=== PATIENT | female | born 1960 | race Caucasian/White ===

== ENCOUNTER → 2016-12-11 | Outpatient (CLI) | payer OTHER ==
[~2016-12-11] MED LIST: /AMLO25TA PO; /CLON1TA OR; /CLON1TA PO; /DULO30CA OR; /LOR25TA PO; /ONDA4TA OR; /ONDA4TA PO; /PANT40TA OR; /PANT40TA PO; /QUET10TA OR; /QUET25TA PO; ALBU17IN2 IN; AMBI10TA OR; AMBI5TAB PO; ASPI81TA45 OR; ASPI81TA63 PO; AUGM875T27 PO; AZIT250T3 PO; BISAC5TA PO; CATA0.1T OR; COMBIN INH; DEPA250T3 OR; DEXILANT PO; DOCU10ELUD PO; FOLI400T PO; HYDR-3713 PO; IMIT50TA PO; KEPP500T4 PO; KLON1TAB OR; LEVO200T OR; LEVO50TA4 PO; LEVO750T33 PO; LEVO88TA4 PO; LIPI10TA PO; LISI10TA4 OR; LISI10TA4 PO; MICR10CA PO; MILKSUS; NICO14DI3 TD; NICO14PA TD; NICO21DI4 TD; OMEP40CA2 PO; OXYC10TA12 PO; PLAV75TA2 OR; SERO200T PO; SERO400T OR; VENTAER IN; VENTAER INH; VICODINES TAB OR; VITA100037 PO; VITAMIN B12 PO; ZEST20TA8 PO; ZYRT10CA PO
[2016-12-11 13:16] LABS: ALBUMIN 3.9 GM/DL (3.2-5.2); ALBUMIN/GLOBULIN RATIO 1.22 (1.00-1.93); ALKALINE PHOSPHATASE 180 U/L (45-117); ALT/SGPT 46 U/L (12-78); ANION GAP 8 MEQ/L (8-16); AST/SGOT 74 U/L (15-37); BILIRUBIN,TOTAL 0.5 MG/DL (0.2-1.0); BLOOD UREA NITROGEN 10 MG/DL (7-18); CALCIUM LEVEL 8.8 MG/DL (8.5-10.1); CARBON DIOXIDE LEVEL 27 MEQ/L (21-32); CHLORIDE LEVEL 106 MEQ/L (98-107); CREATININE FOR GFR 0.87 MG/DL (0.55-1.02); FREE T4 1.02 NG/DL (0.76-1.46); GLOMERULAR FILTRATION RATE > 60.0 (>51); GLUCOSE, FASTING 139 MG/DL (70-105); POTASSIUM SERUM 4.6 MEQ/L (3.5-5.1); SODIUM LEVEL 141 MEQ/L (136-145); TOTAL PROTEIN 7.1 GM/DL (6.4-8.2)
== END ==
LOC: M WUC 08:49
PROVIDERS: ATTEND Nurse Practitioner Family
DX: E03.9 Hypothyroidism, unspecified (principal); R73.09 Other abnormal glucose

== ENCOUNTER → 2017-01-03 | Emergency (ER) | payer OTHER ==
[~2017-01-03] VITALS: Ht 162.6 cm; Wt 78.5 kg
[~2017-01-03] MED LIST changes: +ATEN50TA2 PO; +GABA-283 PO; +IPRATROPIUM 0.5MG/ALBUTEROL 2.5MG INH SOL UD 3ML (DUONEB)(J7620) NEB ONE; +NS 1,000 ML IV ONE; +PRED20TA PO; +TIZA4CAP3 PO; +dexameTHASONE 20 MG/5 ML VIAL (J1100) IV ONE
[2017-01-03 21:23] LABS: ALBUMIN 3.6 GM/DL (3.2-5.2); ALBUMIN/GLOBULIN RATIO 1.06 (1.00-1.93); BILIRUBIN,DIRECT 0.1 MG/DL (0.0-0.2); BILIRUBIN,TOTAL 0.4 MG/DL (0.2-1.0)
[2017-01-03 21:48] VITALS: BP 164/76
--- NOTE | 2017-01-03 22:00 | ECGEPIP ---
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
--- NOTE | 2017-01-04 02:36 | REP ---
Clinical: Dyspnea. Comparison: 12/14/2015. Findings: Mediastinum and cardiac silhouette are normal. Lung [place] are relatively stable and clear. No focal consolidation, effusion, or pneumothorax. Trace left basilar atelectasis cannot be excluded. Skeletal structures intact. Impression: No focal consolidation. Signed by Juan M Dial MD 01/04/2017 02:27 A
== END | disposition home or self-care (01) ==
LOC: M ED 20:28
DX: R11.10 Vomiting, unspecified (principal); J44.9 Chronic obstructive pulmonary disease, unspecified; I10 Essential (primary) hypertension; E78.5 Hyperlipidemia, unspecified; M19.90 Unspecified osteoarthritis, unspecified site; F17.200 Nicotine dependence, unspecified, uncomplicated; Z79.899 Other long term (current) drug therapy; Z79.82 Long term (current) use of aspirin
CPT/HCPCS: 71020; 80076; 82150; 83690; 93005; 93041; 94640; 94760; 96374; 99284; J1100

== ENCOUNTER 2017-01-11 17:39 | Emergency (ER) | payer OTHER ==
[~2017-01-11] VITALS: Ht 162.6 cm; Wt 81.2 kg
[2017-01-11 17:39] VITALS: BP 178/83
[~2017-01-11 17:39] MED LIST changes: -GABA-283 PO; -IPRATROPIUM 0.5MG/ALBUTEROL 2.5MG INH SOL UD 3ML (DUONEB)(J7620) NEB ONE; -NS 1,000 ML IV ONE; -dexameTHASONE 20 MG/5 ML VIAL (J1100) IV ONE
[2017-01-11] MEDS ORDERED: GABA-283 PO (18:28)
== END 2017-01-11 21:31 | disposition left against medical advice (07) ==
LOC: M ED 18:45
DX: I10 Essential (primary) hypertension (principal); Z79.82 Long term (current) use of aspirin; Z79.899 Other long term (current) drug therapy; Z86.73 Personal history of transient ischemic attack (TIA), and cerebral infarction without residual deficits; R56.9 Unspecified convulsions; Z85.820 Personal history of malignant melanoma of skin; F25.9 Schizoaffective disorder, unspecified; G47.30 Sleep apnea, unspecified; Z85.41 Personal history of malignant neoplasm of cervix uteri; M54.9 Dorsalgia, unspecified; F41.9 Anxiety disorder, unspecified; Z53.29 Procedure and treatment not carried out because of patient's decision for other reasons

== ENCOUNTER → 2017-01-26 | Outpatient (REF) | payer OTHER ==
[~2017-01-26] MED LIST changes: +GABA-283 PO
[2017-01-26 13:20] LABS: FREE T4 1.18 NG/DL (0.76-1.46)
== END ==
LOC: M LABDRAW1 11:44
PROVIDERS: ATTEND Nurse Practitioner Family
DX: E03.9 Hypothyroidism, unspecified (principal)

== ENCOUNTER → 2017-01-26 | Outpatient (REF) | payer OTHER ==
[2017-01-26 13:16] LABS: BLOOD UREA NITROGEN 12 MG/DL (7-18); CREATININE FOR GFR 0.95 MG/DL (0.55-1.02); GLOMERULAR FILTRATION RATE > 60.0 (>51)
== END ==
LOC: M LABDRAW1 11:43
PROVIDERS: ATTEND Orthopaedic Surgery
DX: M25.562 Pain in left knee (principal)

== ENCOUNTER → 2017-03-28 | Outpatient (CLI) | payer OTHER ==
[2017-03-28 18:32] LABS: BASO # 0.1 K/mm3 (0.0-0.2); BASO % 1.1 % (0.0-1.0); EOS # 0.2 K/mm3 (0.0-0.50); EOS % 1.9 % (0.0-3.0); LARGE UNSTAINED CELL # 0.1 K/mm3 (0.0-0.4); LYMPH % 23.4 % (24.0-44.0); MEAN CORPUSCULAR HEMOGLOBIN 32.7 pg (27.0-33.0); MEAN CORPUSCULAR HGB CONC 33.3 g/dl (32.0-36.5); MEAN CORPUSCULAR VOLUME 98.2 fl (80.0-96.0); MONO # 0.4 K/mm3 (0.0-0.8); MONO % 4.7 % (0.0-5.0); NEUTROPHILS # 5.6 K/mm3 (1.8-7.7); PLATELET COUNT, AUTOMATED 306 k/mm3 (150-450); RED CELL DISTRIBUTION WIDTH 12.9 % (11.5-14.5); WHITE BLOOD COUNT 8.2 K/mm3 (4.0-10.0)
[2017-03-28 18:46] LABS: ALBUMIN 3.8 GM/DL (3.2-5.2); ALBUMIN/GLOBULIN RATIO 1.27 (1.00-1.93); ALKALINE PHOSPHATASE 164 U/L (45-117); ALT/SGPT 23 U/L (12-78); ANION GAP 8 MEQ/L (8-16); AST/SGOT 47 U/L (15-37); BILIRUBIN,TOTAL 0.3 MG/DL (0.2-1.0); BLOOD UREA NITROGEN 5 MG/DL (7-18); CALCIUM LEVEL 9.6 MG/DL (8.5-10.1); CARBON DIOXIDE LEVEL 27 MEQ/L (21-32); CHLORIDE LEVEL 109 MEQ/L (98-107); CREATININE FOR GFR 0.81 MG/DL (0.55-1.02); GLOMERULAR FILTRATION RATE > 60.0 (>51); GLUCOSE, FASTING 138 MG/DL (70-105); SODIUM LEVEL 144 MEQ/L (136-145); TOTAL PROTEIN 6.8 GM/DL (6.4-8.2)
== END ==
LOC: M WUC 11:09
PROVIDERS: ATTEND Nurse Practitioner Family
DX: R60.9 Edema, unspecified (principal); I10 Essential (primary) hypertension

== ENCOUNTER 2017-04-19 10:34 | Emergency (ER) | payer OTHER ==
[~2017-04-19] VITALS: Ht 162.6 cm; Wt 86.1 kg
[~2017-04-19 10:34] MED LIST changes: -AUGM875T27 PO; +AUGM875T28 PO; +AZIT-12 PO; -AZIT250T3 PO; +LEVO750T13 PO; -LEVO750T33 PO
[2017-04-19] MEDS ORDERED: LEVO88TA3 PO (10:46)
[2017-04-19] MEDS ORDERED: NORC7.5T35 PO (10:46)
[2017-04-19] MEDS ORDERED: **hydrALAZINE HCL** 25 MG TAB PO SCH (12:00)
[2017-04-19 12:57] LABS: BASO # 0.1 K/mm3 (0.0-0.2); BASO % 1.2 % (0.0-1.0); EOS # 0.2 K/mm3 (0.0-0.50); EOS % 2.2 % (0.0-3.0); LARGE UNSTAINED CELL # 0.1 K/mm3 (0.0-0.4); LYMPH # 2.4 K/mm3 (1.5-4.5); LYMPH % 26.6 % (24.0-44.0); MEAN CORPUSCULAR HEMOGLOBIN 32.8 pg (27.0-33.0); MEAN CORPUSCULAR HGB CONC 34.2 g/dl (32.0-36.5); MEAN CORPUSCULAR VOLUME 95.9 fl (80.0-96.0); MONO # 0.4 K/mm3 (0.0-0.8); NEUTROPHILS # 5.8 K/mm3 (1.8-7.7); PLATELET COUNT, AUTOMATED 240 k/mm3 (150-450); RED CELL DISTRIBUTION WIDTH 12.4 % (11.5-14.5)
[2017-04-19] MEDS ORDERED: KETOROLAC 30 MG/ML VIAL (J1885) IV ONE ×2 (13:00→13:45)
[2017-04-19] MEDS ORDERED: MORPHINE 2 MG/ML 1ML SYRINGE IV ONE ×2 (13:00→13:45)
[2017-04-19] MEDS ORDERED: METOCLOPRAMIDE INJ 10MG/2ML VIAL (J2765) IV ONE ×2 (13:00→13:45)
[2017-04-19] MEDS: hydrALAZINE INJ 20 MG/ML VIAL IV PRN ×2 (13:01→14:13)
[2017-04-19 13:03] LABS: INR 1.01
[2017-04-19 13:11] LABS: CONTROL LINE HCG INT CTR LINE PRESENT
[2017-04-19 13:20] LABS: ANION GAP 3 MEQ/L (8-16); AST/SGOT 41 U/L (15-37); BLOOD UREA NITROGEN 7 MG/DL (7-18); CALCIUM LEVEL 8.8 MG/DL (8.5-10.1); CARBON DIOXIDE LEVEL 29 MEQ/L (21-32); CHLORIDE LEVEL 110 MEQ/L (98-107); GLOMERULAR FILTRATION RATE > 60.0 (>51); GLUCOSE, FASTING 117 MG/DL (70-105); SODIUM LEVEL 142 MEQ/L (136-145)
[2017-04-19 13:21] LABS: ALBUMIN 3.5 GM/DL (3.2-5.2); ALBUMIN/GLOBULIN RATIO 1.13 (1.00-1.93); ALKALINE PHOSPHATASE 137 U/L (45-117); ALT/SGPT 19 U/L (12-78); BILIRUBIN,TOTAL 0.7 MG/DL (0.2-1.0); MAGNESIUM LEVEL 2.1 MG/DL (1.8-2.4); T UPTAKE 35 % (30-39); TOTAL PROTEIN 6.6 GM/DL (6.4-8.2)
[2017-04-19] MEDS ORDERED: ISOVUE-370 76% 100ML VIAL (Q9967) As Ordered ONE (13:25)
[2017-04-19 13:29] LABS: ERYTHROCYTE SEDIMENTATION RATE 13 mm/hr (0-30); THYROXINE (T4) 10.8 UG/DL (4.5-12.0)
--- NOTE | 2017-04-19 13:53 | REP ---
Clinical: Headache . Comparison: 03/13/2014 . Findings: The ventricles, sulci, and cisterns are normal in position and appearance. Ramos-white differentiation is maintained. No acute intracranial hemorrhage, mass/mass effect, pathology or trauma/injury. No evidence for acute infarction. No extra-axial fluid collection. Calvarium is intact. Paranasal sinuses and mastoid air cells are clear. Impression: Normal noncontrast head CT. No evidence for acute intracranial pathology or trauma/injury. Signed by Juan M Dial MD 04/19/2017 01:44 P
--- NOTE | 2017-04-19 14:04 | REP ---
Clinical: Headache and abdominal pain. Technique: Axial contrast enhanced images from the lung bases to the pubic symphysis using 100 ml Isovue 370 intravenous contrast material with coronal and sagittal re-formations. Comparison: 09/29/2011. Findings: Lung bases are clear. Visualized heart and pericardium normal. Liver, spleen, pancreas, gallbladder, bilateral adrenal glands and kidneys are normal. Hepatic hypodensity along the posterior periphery right lobe is unchanged compared to 2011 and compatible with cyst. The enteric system is without obstruction or acute inflammatory process. Pelvis demonstrates normal bladder and evidence for prior hysterectomy. Small amount of free fluid in the posterior pelvic cul-de-sac is nonspecific. No adenopathy. No significant ascites. No free air. Abdominal aorta and vasculature normal. Musculoskeletal structures demonstrate age-related changes without focal osseous abnormality. Impression: 1. Hepatic cysts stable compared to 2010. 2. Small amount of free fluid in the pelvis nonspecific. 3. No acute abdominopelvic pathology appreciated. Signed by Juan M Dial MD 04/19/2017 01:56 P
[2017-04-19 14:13] VITALS: BP 202/92
--- NOTE | 2017-04-19 14:18 | REP ---
PORTABLE CHEST X-RAY: Single view. HISTORY: CVA. Comparison study January 03, 2017. FINDINGS: EKG monitoring electrodes overlie the chest. Lungs are well inflated and clear. The aorta is slightly tortuous. Pulmonary vasculature is not increased. No infiltrate is seen. The heart is not felt to be enlarged. IMPRESSION: No acute disease. Signed by Doug Philippe MD 04/19/2017 03:34 P
[2017-04-19] MEDS ORDERED: ATOR80TA59 PO (14:54)
[2017-04-19] MEDS ORDERED: ALBU17IN INH (14:54)
[2017-04-19] MEDS ORDERED: SLEE1TAB PO (14:54)
[2017-04-19] MEDS ORDERED: GABA-282 PO (14:54)
[2017-04-19] MEDS ORDERED: TRIA37.5 PO (14:56)
[2017-04-19] MEDS ORDERED: LISI-538 PO (15:01)
[2017-04-19 15:06] LABS: METHADONE URINE NEGATIVE (NEGATIVE)
[2017-04-19 16:29] VITALS: BP 112/62
--- NOTE | 2017-04-20 07:30 | ECGEPIP ---
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
[2017-04-26 00:11] LABS: URINE METANEPHR/CREAT RATIO 0.4 (0.0-1.0)
== END 2017-04-19 17:24 | disposition left against medical advice (07) ==
LOC: M ED 10:34
DX: R51 Headache (principal); I10 Essential (primary) hypertension

== ENCOUNTER 2017-04-25 19:43 | Observation (INO) | payer OTHER ==
[~2017-04-25] VITALS: Ht 162.6 cm; Wt 85.3 kg
[~2017-04-25 19:43] MED LIST changes: +ALBU17IN INH; +ATOR80TA59 PO; +GABA-282 PO; +LEVO88TA3 PO; +LISI-538 PO; +NORC7.5T35 PO; +SLEE1TAB PO; +TRIA37.5 PO
[2017-04-25] MEDS ORDERED: fentaNYL 100 MCG/2 ML INJECTION (J3010) IV ONE (20:30)
[2017-04-25] MEDS ORDERED: KETOROLAC 30 MG/ML VIAL (J1885) IV ONE (20:30)
[2017-04-25] MEDS ORDERED: hydrALAZINE INJ 20 MG/ML VIAL IV ONE (20:30)
[2017-04-25 20:37] LABS: BASO # 0.1 K/mm3 (0.0-0.2); BASO % 0.8 % (0.0-1.0); EOS # 0.1 K/mm3 (0.0-0.50); EOS % 1.5 % (0.0-3.0); LARGE UNSTAINED CELL # 0.1 K/mm3 (0.0-0.4); LARGE UNSTAINED CELL % 1.2 % (0.0-4.0); LYMPH # 2.8 K/mm3 (1.5-4.5); LYMPH % 30.5 % (24.0-44.0); MEAN CORPUSCULAR HEMOGLOBIN 32.5 pg (27.0-33.0); MEAN CORPUSCULAR VOLUME 95.4 fl (80.0-96.0); MONO # 0.4 K/mm3 (0.0-0.8); NEUTROPHILS # 5.7 K/mm3 (1.8-7.7); NEUTROPHILS % 62.1 % (36.0-66.0); PLATELET COUNT, AUTOMATED 303 k/mm3 (150-450); RED CELL DISTRIBUTION WIDTH 12.6 % (11.5-14.5); WHITE BLOOD COUNT 9.1 K/mm3 (4.0-10.0)
[2017-04-25 21:08] LABS: ANION GAP 9 MEQ/L (8-16); BLOOD UREA NITROGEN 3 MG/DL (7-18); CALCIUM LEVEL 8.8 MG/DL (8.5-10.1); CARBON DIOXIDE LEVEL 26 MEQ/L (21-32); CHLORIDE LEVEL 107 MEQ/L (98-107); CREATININE FOR GFR 0.77 MG/DL (0.55-1.02); GLOMERULAR FILTRATION RATE > 60.0 (>51); GLUCOSE, FASTING 138 MG/DL (70-105); POTASSIUM SERUM 3.6 MEQ/L (3.5-5.1); SODIUM LEVEL 142 MEQ/L (136-145)
[2017-04-25] MEDS ORDERED: ACETAMINOPHEN TAB 650MG DOSE (2X325MG) PO PRN (22:30)
[2017-04-25] MEDS ORDERED: ONDANSETRON 4MG/2ML VIAL (J2405) IV PRN (22:30)
[2017-04-26] VITALS (10 sets, daily range): BP systolic 113–194; BP diastolic 60–91
[2017-04-26] MEDS ORDERED: tiZANidine 4 MG TAB PO PRN (00:15)
[2017-04-26] MEDS ORDERED: diphenhydrAMINE 25 MG CAP PO PRN (00:15)
[2017-04-26] MEDS ORDERED: hydrOXYzine 50 MG TAB PO PRN (00:15)
[2017-04-26] MEDS ORDERED: **hydrALAZINE** 10 MG TAB PO PRN (00:15)
[2017-04-26] MEDS ORDERED: ALBUTEROL 90 MCG/ACT 8GM HFA INHALER INH PRN (00:15)
[2017-04-26] MEDS ORDERED: hydrALAZINE INJ 20 MG/ML VIAL IV PRN (00:15)
[2017-04-26] MEDS ORDERED: DYAZIDE 37.5/25 CAP (TRIAM/HCTZ) PO PRN (00:15)
[2017-04-26] MEDS: GABAPENTIN 300 MG CAP PO SCH ×3 (00:36→20:24)
[2017-04-26] MEDS: ANEXSIA, NORCO 7.5MG/325MG TABLET(HYDROCODONE/APAP) PO PRN ×4 (00:36→21:30)
[2017-04-26] MEDS: OMEPRAZOLE 20 MG CAP PO SCH ×3 (00:36→20:26)
[2017-04-26] MEDS: HEPARIN SOD (PORCINE) 5000 UNITS/ML VIAL SC SCH ×3 (00:37→20:24)
[2017-04-26] MEDS: ATORVASTATIN 20 MG TAB PO SCH ×2 (00:37→20:26)
--- NOTE | 2017-04-26 01:54 | HPEPDOC ---
General Date of Admission Apr 25, 2017 at 22:17 Primary Care Physician: Marcy Funes Chief Complaint The patient is a 56-year-old female admitted with a reason for visit of Hypertensive Urgency. History of Present Illness The patient is a 56-year-old female with PMH of bipolar, anxiety, malignant htn , seizure d/o (last 2014), hypothyroidism, cervical ca, uterine ca s/p TAMRA, melanoma, COPD, TJ o cpap, tobacco abuse who was admitted with Hypertensive Urgency. Pt reports that she has always had difficulty maintaining a normal BP. She reports that it often fluctuates to as high as 180's but can return to normal (130's/80's) soon after. She is adherent to her bp regimen which includes acei, bb. Despite this she still has been unable to maintain a nml bp. She reports that she has been under some stress recently, but that since her mother passed with a stroke at age of 58, she is very conscientious about taking her medication. Pt says over the last few days that her bp was markedly elevated, but she denied n/v, dyspnea, parasthesias, LE swelling, cp, focal motor deficits, but she did have some confusion that improved when her bp improved. Pt here 1 day prior, but left [facility] since hospital fwas full and she was boarding in ED. In addition, she did report a desire to quit smokingh again. Home Medications Scheduled Atenolol (Atenolol) 50 Mg Tab, 50 MG PO DAILY, (Reported) Atenolol (Atenolol) 50 Mg Tab, 25 MG PO DAILY Atorvastatin Calcium (Atorvastatin Calcium) 80 Mg Tab, 80 MG PO QHS, (Reported) Gabapentin (Gabapentin) 300 Mg Cap, 300 MG PO BID, (Reported) Levothyroxine Sodium (Synthroid) 88 Mcg Tab, 88 MCG PO DAILY, (Reported) Lisinopril (Lisinopril) 20 Mg Tab, 20 MG PO DAILY, (Reported) Lisinopril (Lisinopril) 20 Mg Tab, 40 MG PO DAILY Omeprazole (Omeprazole) 40 Mg Cap, 40 MG PO BID, (Reported) Scheduled PRN Acetaminophen/Hydrocodone ([place] 7.5-325 mg) 1 Tab Tab, 1 TAB PO TID PRN for PAIN, (Reported) Albuterol Sulfate (Ventolin Hfa) 200 Puff/8 Gm Aers, 2 PUFF INH Q4H PRN for WHEEZING, (Reported) Diphenhydramine HCl (Sleep Aid) 25 Mg Tab, 25 MG PO QHS PRN for SLEEP, (Reported ) Hydrochlorothiazide W/Triamter (Triamterene/Hydrochloroth 37.5-25 mg) 1 Tab Tab , 1 TAB PO DAILY PRN for SWELLING, (Reported) Tizanidine Hydrochloride (Tizanidine HCl) 4 Mg Cap, 4 MG PO TID PRN for MUSCLE SPASMS, (Reported) Allergies Coded Allergies: No Known Drug Allergy (Unverified Allergy, Unknown, 01/20/13) Past Medical History Medical History 1. COPD 2. CVA 3. TIA 4. Mech fall with fx L 7th rib (2013) 5. Uterine Ca 6. Cervical Ca 7. Melanoma 8. Hypothyroidism 9. Seizure (last 2014) 10. GERD 11. Bipolar 12. Anxiety 13. TJ on CPAP 14. Tobacco abuse Surgical History 1. x4 2. Hysterectomy 3. B/L inguinal hernia repair 4. Removal melanoma x4 5. Breast bx (non-malignant) Family History Significant Family History: Hypertension, Other (Stroke (mother @58)) Social History * Smoker: current smoker, cigarettes (1/2ppd) Alcohol: Denies Drugs: denies Recent Travel/Sick Contacts: Denies: Recent travel, Recent sick contacts Psychosocial History: Anxiety, Bipolar, Depression, Suicidal thoughts Review of Symptoms Constitutional: Denies: Chills, Fever, Malaise, Night Sweats, Fatigue Eyes: Denies: Vision change, Conjunctivae inflammation ENT: Reports: Head Aches, Denies: Dysphagia Skin: Denies: Rash, Lesions Pulmonary: Denies: Dyspnea, Cough Cardiovascular: Denies: Chest Pain, Palpitations Gastrointestinal: Denies: Nausea, Vomiting, Abdominal Pain Genitourinary: Denies: Dysuria, Frequency Hematologic: Denies: Bruising, Bleeding Excessively Endocrine: Denies: Polydipsia, Polyphagia, Polyuria Musculoskeletal: Reports: Back Pain, Denies: Neck Pain Neurological: Reports: Confusion, Seizures, Denies: Weakness, Numbness, Incoordination Psych: Reports: Depression, Denies: Anxiety Physical Examination General Exam: Positive: Alert, Cooperative, No Acute Distress Eye Exam: Positive: Conjunctiva & lids normal ENT Exam: Positive: Atraumatic, Mucous membr. moist/pink Neck Exam: Positive: Supple, thyromegaly, Negative: JVD, Lymphadenopathy Chest Exam: Positive: Clear to auscultation, Normal air movement, Negative: Rales, Rhonchi, Wheezing Heart Exam: Positive: Rate Normal, Regular Rhythm, Normal S1, Normal S2, Murmurs (CB (II/) L parasternal border), Negative: Tachycardic, Bradycardic, Irregular Rhythm, Gallops, Rubs Telemetry: Negative: No significant arrhythmia Abdomen Exam: Positive: Normal bowel sounds, Soft, Negative: BS Hyperactive, BS Hypoactive, Tenderness, Hepatospenomegaly Extremity Exam: Negative: Clubbing, Cyanosis, Edema Skin Exam: Positive: Nl turgor and temperature, Negative: Rash, Breakdown Neuro Exam: Positive: Normal Gait, Normal Speech, Strength at 5/5 X4 ext, Cranial Nerves 3-12 NL Psych Exam: Positive: Mental status NL, Anxiety, Oriented x 3 Vital Signs Vital Signs Date Time Temp Pulse Resp B/P (MAP) Pulse Ox O2 Delivery O2 Flow Rate FiO2 04/26/17 01:11 18 04/26/17 00:10 98.6 68 120/70 (87) 98 Room Air Laboratory Data Labs 24H Laboratory Tests 2 04/25/17 20:24: White Blood Count 9.1, Red Blood Count 3.97L, Hemoglobin 12.9, Hematocrit 37.9, Mean Corpuscular Volume 95.4, Mean Corpuscular Hemoglobin 32.5, Mean Corpuscular Hemoglobin Concent 34.0, Red Cell Distribution Width 12.6, Platelet Count 303, Neutrophils (%) (Auto) 62.1, Lymphocytes (%) (Auto) 30.5, Monocytes ( %) (Auto) 4.0, Eosinophils (%) (Auto) 1.5, Basophils (%) (Auto) 0.8, Neutrophils # (Auto) 5.7, Lymphocytes # (Auto) 2.8, Monocytes # (Auto) 0.4, Eosinophils # (Auto) 0.1, Basophils # (Auto) 0.1, Large Unclassified Cells % 1.2 , Large Unclassified Cells # 0.1, Anion Gap 9, Glomerular Filtration Rate > 60.0 , Blood Urea Nitrogen 3L, Creatinine 0.77, Sodium Level 142, Potassium Level 3.6 , Chloride Level 107, Carbon Dioxide Level 26, Calcium Level 8.8 04/26/17 01:01: CBC/BMP Laboratory Tests 04/25/17 20:24 Red Blood Count 3.97 L, Mean Corpuscular Volume 95.4, Mean Corpuscular Hemoglobin 32.5, Mean Corpuscular Hemoglobin Concent 34.0, Red Cell Distribution Width 12.6, Neutrophils (%) (Auto) 62.1, Lymphocytes (%) (Auto) 30.5, Monocytes (%) (Auto) 4.0, Eosinophils (%) (Auto) 1.5, Basophils (%) (Auto ) 0.8, Neutrophils # (Auto) 5.7, Lymphocytes # (Auto) 2.8, Monocytes # (Auto) 0.4, Eosinophils # (Auto) 0.1, Basophils # (Auto) 0.1, Calcium Level 8.8 Assessment/Plan The patient is a 56-year-old female with PMH of bipolar, anxiety, malignant htn , seizure d/o (last 2014), hypothyroidism, cervical ca, uterine ca s/p TAMRA, melanoma, COPD, TJ o cpap, tobacco abuse who was admitted with Hypertensive Urgency 1. HTN urgency (end-organ sx-delirium) Pt's delirium was likely hypertensive encephalopathy since it improved with the normalizing of her bp Continue bb, but will lower dose to 25mg since pt has reported HR as low as 30's , but w/o syncope Continue dyazide Continue lisinopril, but will increase to 40mg Will add prn hydralazine 20mg po q6h for bp >180/100 and hydralazine iv for bp > 200/110 Lower bp by 10% over next 24hrs 2. stroke Continue statin Optimize bp control Check FLP 3. hypothyroidism Continue synthroid TSH nml 04/07 4. tobacco abuse Smoking cessation counseling provided Pt motivated to quit 5. DVT prophylaxis Heparin sq Plan / VTE VTE Prophylaxis Ordered?: Yes Nehemias Montero MD Apr 26, 2017 01:19
--- NOTE | 2017-04-26 07:45 | ECGEPIP ---
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
[2017-04-26 07:46] LABS: MEAN CORPUSCULAR HEMOGLOBIN 32.5 pg (27.0-33.0); MEAN CORPUSCULAR HGB CONC 33.8 g/dl (32.0-36.5); MEAN CORPUSCULAR VOLUME 96.2 fl (80.0-96.0); RED CELL DISTRIBUTION WIDTH 12.8 % (11.5-14.5); WHITE BLOOD COUNT 10.7 K/mm3 (4.0-10.0)
[2017-04-26 08:18] LABS: ANION GAP 9 MEQ/L (8-16); BLOOD UREA NITROGEN 7 MG/DL (7-18); CALCIUM LEVEL 8.5 MG/DL (8.5-10.1); CARBON DIOXIDE LEVEL 25 MEQ/L (21-32); CHLORIDE LEVEL 110 MEQ/L (98-107); CREATININE FOR GFR 0.85 MG/DL (0.55-1.02); GLOMERULAR FILTRATION RATE > 60.0 (>51); GLUCOSE, FASTING 139 MG/DL (70-105); POTASSIUM SERUM 3.6 MEQ/L (3.5-5.1); SODIUM LEVEL 144 MEQ/L (136-145)
[2017-04-26] MEDS ORDERED: LEVOTHYROXINE 88MCG TABLET (0.088 MG) PO SCH (09:00)
[2017-04-26] MEDS ORDERED: ATENOLOL 50 MG TAB PO SCH (09:00)
[2017-04-26] MEDS: LEVOTHYROXINE 88MCG TABLET (0.088 MG) PO SCH (09:39)
[2017-04-26] MEDS: LISINOPRIL 20 MG TAB PO SCH (09:42)
[2017-04-26] MEDS ORDERED: LISI-538 PO (09:49)
[2017-04-26] MEDS ORDERED: ATEN50TA2 PO (09:49)
[2017-04-26] MEDS ORDERED: FIORICET TAB PO ONE (10:30)
--- NOTE | 2017-04-26 10:53 | REP ---
CT Head without contrast HISTORY: Headache COMPARISON: 04/19/2017 There is no intraparenchymal hemorrhage, acute infarct, mass or midline shift. The ventricular system is normal in appearance. There is no extra cerebral collection. There is no fracture. The visualized sinuses are clear. IMPRESSION: There is no intracranial lesion. Signed by Raphael Macdonald MD 04/26/2017 10:45 A
[2017-04-26] MEDS: hydrALAZINE INJ 20 MG/ML VIAL IV SCH ×2 (11:39→18:00)
[2017-04-26] MEDS ORDERED: IPRATROPIUM 0.5MG/ALBUTEROL 2.5MG INH SOL UD 3ML (DUONEB)(J7620) NEB PRN (16:00)
[2017-04-26] MEDS: **hydrALAZINE** 10 MG TAB PO SCH ×2 (16:51→20:26)
--- NOTE | 2017-04-26 16:51 | ECGEPIP ---
Stationary ECG Study 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
--- NOTE | 2017-04-26 16:59 | IPN ---
DATE: 04/26/2017 SUBJECTIVE: Ms. Frazier is a 56-year-old female who was seen and examined at the bedside. Patient expressed that last night she had a mild headache, however this morning when she woke up she had a throbbing headache bilaterally, however patient denies any vision or hearing changes. Patient expressed that the headache is a 7-8 out of 10 with no radiation, however it feels like a pounding headache. Patient denies nausea or vomiting. Patient also denies palpitations, racing or skipping heart beat or chest pain. OBJECTIVE: VITAL SIGNS: Temperature 98, pulse 60, respiratory rate 18, blood pressure 131/65, pulse oximetry 97% on room air. GENERAL APPEARANCE: Patient was sitting in the bed, in no acute distress. Patient was awake, alert, and oriented to time, place, and person. HEENT: Normocephalic, atraumatic. Pupils are equal and reactive to light. Oral mucous is moist. NECK: Soft, supple. No lymphadenopathy. No thyromegaly. No jugular venous distention (JVD). HEART: Regular rate and rhythm, normal S1, S2. ABDOMEN: Soft, nontender. Positive bowel sounds in all quadrants. LUNGS: Clear breath sounds bilaterally, good air movement. EXTREMITIES: No lower extremity edema. +2 pulses in both lower extremities. NEUROLOGIC: Cranial nerves II-XII were intact. No focal deficiencies. LABORATORY DATA: White blood cells 10.7, red blood cells 3.82, hemoglobin 12.4, hematocrit 36.7, MCV 96.2, MCH 32.5, MCHC 33.8, RDW 12.8, platelet count 284. Sodium 144, potassium 3.6, chloride 110, carbon dioxide 25, anion gap 9, BUN 7, creatinine 0.85, glomerular filtration rate more than 60, fasting glucose 139, calcium 8.5. IMAGING STUDIES: CT of the head without contrast which shows no intracranial lesions. ASSESSMENT AND PLAN: 1. Hypertensive emergency. Patient this morning developed a headache. The CT did not show any pathology. Patient's blood pressure is within normal range. Due to the headache, we gave one dose of Fioricet, however due to continuation of the headache we gave another dose of acetaminophen. We will continue monitoring patient's blood pressure and continue with the current medications including hydralazine and lisinopril. TSH has been ordered. Also renin has been ordered due to hypertensive emergency, however result is pending at this time. 2. History of CVA. At this point, patient is on a statin. Blood pressure is controlled. 3. Uterine cancer. This is a chronic issue. 4. Cervical cancer. This is a chronic issue. 5. Hypothyroidism. Will continue patient on Synthroid. 6. Gastroesophageal reflux disease (GERD). Will continue patient on Prilosec 40 by mouth twice a day. 7. Anxiety. Will continue patient on Atarax 50 mg every 6 hours as needed for anxiety. At this time patient is stable. 8. History of bipolar disorder. At this time patient is not on any medication for bipolar disorder and this needs to be followed up as an outpatient. 9. Deep venous thrombosis (DVT) prophylaxis. Patient is on heparin 5000 every 12 hours. My preceptor for this patient encounter was Dr. Ever Ruiz. The preceptor was physically present in the building during the encounter and was fully available. As needed, all aspects of the patient interview, examination, medical decision making process, and medical care plan development were reviewed and approved by the preceptor. The preceptor is aware and concurs with the plan as stated in the body of this note and will attest to such by his/her cosignature. I, Ever Ruiz, have both independently examined this patient as well as reviewed the documentation. I have discussed in detail with the resident the findings and plan of treatment as documented in the residents documentation. I will continue to follow the patient and offer further guidance to the patients care as necessary. KEKE
[2017-04-26] MEDS: IPRATROPIUM 0.5MG/ALBUTEROL 2.5MG INH SOL UD 3ML (DUONEB)(J7620) NEB SCH (21:12)
[2017-04-27] VITALS: BP 138/64
[2017-04-27] MEDS: IPRATROPIUM 0.5MG/ALBUTEROL 2.5MG INH SOL UD 3ML (DUONEB)(J7620) NEB SCH ×2 (02:11→08:04)
[2017-04-27 04:00] VITALS: BP 120/68
[2017-04-27 04:40] LABS: BASO # 0.1 K/mm3 (0.0-0.2); EOS # 0.2 K/mm3 (0.0-0.50); EOS % 2.3 % (0.0-3.0); LARGE UNSTAINED CELL # 0.1 K/mm3 (0.0-0.4); LARGE UNSTAINED CELL % 1.1 % (0.0-4.0); LYMPH # 2.8 K/mm3 (1.5-4.5); LYMPH % 32.2 % (24.0-44.0); MEAN CORPUSCULAR HEMOGLOBIN 32.7 pg (27.0-33.0); MEAN CORPUSCULAR HGB CONC 33.6 g/dl (32.0-36.5); MEAN CORPUSCULAR VOLUME 97.2 fl (80.0-96.0); MONO # 0.5 K/mm3 (0.0-0.8); MONO % 6.3 % (0.0-5.0); NEUTROPHILS # 4.8 K/mm3 (1.8-7.7); PLATELET COUNT, AUTOMATED 246 k/mm3 (150-450); RED CELL DISTRIBUTION WIDTH 13.1 % (11.5-14.5); WHITE BLOOD COUNT 8.4 K/mm3 (4.0-10.0)
[2017-04-27 04:55] LABS: ALBUMIN/GLOBULIN RATIO 1.07 (1.00-1.93); ALKALINE PHOSPHATASE 136 U/L (45-117); ALT/SGPT 14 U/L (12-78); ANION GAP 10 MEQ/L (8-16); AST/SGOT 33 U/L (15-37); BILIRUBIN,TOTAL 0.4 MG/DL (0.2-1.0); BLOOD UREA NITROGEN 8 MG/DL (7-18); CALCIUM LEVEL 7.8 MG/DL (8.5-10.1); CARBON DIOXIDE LEVEL 25 MEQ/L (21-32); CHLORIDE LEVEL 109 MEQ/L (98-107); GLOMERULAR FILTRATION RATE > 60.0 (>51); GLUCOSE, FASTING 151 MG/DL (70-105); SODIUM LEVEL 144 MEQ/L (136-145); TOTAL PROTEIN 5.8 GM/DL (6.4-8.2)
[2017-04-27] MEDS: LEVOTHYROXINE 88MCG TABLET (0.088 MG) PO SCH (05:33)
[2017-04-27] MEDS: hydrALAZINE INJ 20 MG/ML VIAL IV SCH ×2 (05:35)
[2017-04-27] MEDS ORDERED: POTASSIUM CHLORIDE 10 MEQ SR TABLET PO ONE ×2 (05:45→07:15)
[2017-04-27 08:00] VITALS: BP 148/68
[2017-04-27] MEDS ORDERED: ULTR50TA8 PO ×2 (08:32→08:50)
[2017-04-27 09:03] VITALS: BP 137/83
[2017-04-27] MEDS: GABAPENTIN 300 MG CAP PO SCH (09:04)
[2017-04-27] MEDS: OMEPRAZOLE 20 MG CAP PO SCH (09:04)
[2017-04-27 09:05] VITALS: BP 137/83
[2017-04-27] MEDS: LISINOPRIL 20 MG TAB PO SCH (09:05)
[2017-04-27] MEDS: **hydrALAZINE** 10 MG TAB PO SCH (09:05)
[2017-04-27] MEDS ORDERED: HYDR10TAB PO (09:35)
[2017-04-27] MEDS ORDERED: LISI-538 PO (09:35)
--- NOTE | 2017-05-05 20:58 | DSES ---
DATE OF ADMISSION: 04/25/2017 DATE OF DISCHARGE: 04/27/2017 PRIMARY CARE PHYSICIAN: Marcy Funes. LEAD ATHLETE: None. PROCEDURES: None. DISCHARGE HOME MEDICATIONS: - hydralazine 20 mg by mouth three times a day for 30 days - lisinopril 40 mg by mouth daily - tramadol 50 mg by mouth three times a day as needed for pain - albuterol two puff inhaler every four hours as needed for wheezing - atorvastatin 80 mg by mouth at bedtime - diphenhydramine 25 mg by mouth at bedtime as needed for sleep - gabapentin 300 mg by mouth twice a day - hydrochlorothiazide with triamterene one tablet by mouth daily as needed for swelling - Synthroid 88 mcg by mouth daily - omeprazole 40 mg by mouth twice a day - tizanidine hydrochloride 4 mg by mouth three times a day as needed for muscle spasm PRIMARY DIAGNOSIS: Hypertensive emergency. SECONDARY DIAGNOSES: 1. History of cerebrovascular accident (CVA). 2. Uterine cancer. 3. Cervical cancer. 4. Hypothyroidism. 5. Gastroesophageal reflux disease (GERD). 6. Anxiety. 7. History of bipolar disorder. HOSPITAL COURSE: Ms. Frazier is a 56-year-old female with multiple past medical history who presented due to hypertensive emergency. The patient reported that she always has difficulty maintaining a normal blood pressure. The patient at the time of admission has delirium which was likely secondary to hypertension encephalopathy since it was improved with normalization of the blood pressure. We continued the patient on Dyazide and lisinopril. Also, we added hydralazine 20 mg by mouth every six hours as needed for blood pressure more than 180/100, and hydralazine intravenous (IV) for blood pressure more than 200/110, and we tried to lower the blood pressure by 10% for the next 24 hours. We continued the patient on home medication. The next morning, the patient expressed had a mild headache bilaterally, which has increased to throbbing headache. However, the patient denied any vision or hearing changes. The patient also denied nausea or vomiting and denied palpitations, racing or skipping heart beat. We have ordered CT of the head which did not show any new pathology. The patient's blood pressure stayed within normal range. Due to headache, we gave a dose of Fioricet. The patient was continued to be monitored. At the time of discharge, the patient was medically optimized. We asked the patient to followup with her primary care. DISCHARGE PLACEMENT: Home. FOLLOWUP: Please followup with your primary care. ACTIVITY: Activity as tolerated by patient. My preceptor for this patient encounter was Dr. Ruiz. The preceptor was physically present in the building during the encounter and was fully available as needed. All aspects of the patient interview, examination, medical decision making process, and medical care plan development were reviewed and approved by the preceptor. The preceptor is aware and concurs with the plan as stated in the body of this note and will attest to such by his/her co-signature. I, Ever Ruiz, have both independently examined this patient as well as reviewed the documentation. I have discussed in detail with the resident the findings and plan of treatment as documented in the residents documentation. I will continue to follow the patient and offer further guidance to the patients care as necessary during this hospital stay. KEKE
== END 2017-04-27 09:46 | disposition home or self-care (01) ==
LOC: M ED 19:43 → M ED INP 22:17 → M ICU 04-26 14:05
PROVIDERS: ATTEND Internal Medicine
DX: I16.0 Hypertensive urgency (principal); J44.9 Chronic obstructive pulmonary disease, unspecified; I10 Essential (primary) hypertension; F31.9 Bipolar disorder, unspecified; F17.210 Nicotine dependence, cigarettes, uncomplicated; E03.9 Hypothyroidism, unspecified; Z85.44 Personal history of malignant neoplasm of other female genital organs; Z79.899 Other long term (current) drug therapy; R56.9 Unspecified convulsions; F41.9 Anxiety disorder, unspecified; Z86.73 Personal history of transient ischemic attack (TIA), and cerebral infarction without residual deficits

== ENCOUNTER 2017-11-07 16:46 | Emergency (ER) | payer OTHER | END 2017-11-07 17:24 | disposition left against medical advice (07) | LOC: M ED 16:46 | DX: Z53.29 Procedure and treatment not carried out because of patient's decision for other reasons (principal) ==

== ENCOUNTER 2017-12-20 18:34 | Emergency (ER) | payer OTHER ==
[2017-12-20] MEDS: clonazePAM 1 MG TAB PO (19:54)
== END 2017-12-20 20:57 | disposition left against medical advice (07) ==
LOC: M ED 18:34
DX: Z53.21 Procedure and treatment not carried out due to patient leaving prior to being seen by health care provider (principal)

== ENCOUNTER → 2018-02-04 | Outpatient (CLI) | payer OTHER | LOC: M RAD 14:32 | DX: R05 Cough (principal) | CPT/HCPCS: 71046 ==

== ENCOUNTER 2018-03-15 12:54 | Day surgery (SDC) | payer OTHER ==
[2018-03-15] MEDS ORDERED: NS 1,000 ML IV (13:45)
[2018-03-15] MEDS ORDERED: PROPOFOL 200 MG/20 ML VIAL As Ordered ×2 (14:08→14:28)
[2018-03-15] MEDS ORDERED: LIDOCAINE 2% INJ 100 MG/5 ML SDV (FOR ANES.) As Ordered (14:08)
[2018-03-15] MEDS ORDERED: SIMETHICONE 40MG/0.6ML DROPS 30ML As Ordered (14:26)
[2018-03-15] MEDS ORDERED: ISOVUE-370 76% 100ML VIAL (Q9967) As Ordered (15:56)
== END 2018-03-15 16:55 | disposition home or self-care (01) ==
LOC: M OPP 12:54
DX: K22.8 Other specified diseases of esophagus (principal); K22.70 Barrett's esophagus without dysplasia; R13.14 Dysphagia, pharyngoesophageal phase; R12 Heartburn; I10 Essential (primary) hypertension; G47.30 Sleep apnea, unspecified; E03.9 Hypothyroidism, unspecified; M54.9 Dorsalgia, unspecified; F41.9 Anxiety disorder, unspecified; R51 Headache; J45.909 Unspecified asthma, uncomplicated; R01.1 Cardiac murmur, unspecified; F31.9 Bipolar disorder, unspecified; Z90.711 Acquired absence of uterus with remaining cervical stump; F17.210 Nicotine dependence, cigarettes, uncomplicated; Z79.82 Long term (current) use of aspirin; Z79.891 Long term (current) use of opiate analgesic; Z79.899 Other long term (current) drug therapy; Z86.69 Personal history of other diseases of the nervous system and sense organs; Z86.73 Personal history of transient ischemic attack (TIA), and cerebral infarction without residual deficits; Z85.820 Personal history of malignant melanoma of skin; Z92.3 Personal history of irradiation; Z80.1 Family history of malignant neoplasm of trachea, bronchus and lung; Z80.49 Family history of malignant neoplasm of other genital organs; Z80.8 Family history of malignant neoplasm of other organs or systems
CPT/HCPCS: 43239

== ENCOUNTER → 2018-04-06 | Outpatient (CLI) | payer OTHER ==
[2018-04-06 11:33] LABS: ALBUMIN 3.6 GM/DL (3.2-5.2); ALBUMIN/GLOBULIN RATIO 1.29 (1.00-1.93); ALKALINE PHOSPHATASE 141 U/L (45-117); ALT/SGPT 14 U/L (12-78); ANION GAP 8 MEQ/L (8-16); AST/SGOT 34 U/L (7-37); BILIRUBIN,TOTAL 0.6 MG/DL (0.2-1.0); BLOOD UREA NITROGEN 13 MG/DL (7-18); CALCIUM LEVEL 8.2 MG/DL (8.5-10.1); CARBON DIOXIDE LEVEL 25 MEQ/L (21-32); CHLORIDE LEVEL 111 MEQ/L (98-107); CHOLESTEROL LEVEL 117 MG/DL (<200); CHOLESTEROL RISK RATIO 2.437 (<5); CREATININE FOR GFR 1.27 MG/DL (0.55-1.30); FREE T4 1.23 NG/DL (0.76-1.46); GLOMERULAR FILTRATION RATE 46.2 (>51); GLUCOSE, FASTING 141 MG/DL (70-100); HDL CHOLESTEROL 48 MG/DL (>40); LDL CHOLESTEROL 51.4 MG/DL (<100); NON-HDL-C 69 MG/DL; POTASSIUM SERUM 4.2 MEQ/L (3.5-5.1); SODIUM LEVEL 144 MEQ/L (136-145); TOTAL PROTEIN 6.4 GM/DL (6.4-8.2); TRIGLYCERIDES LEVEL 88 MG/DL (<150)
== END ==
LOC: M LAB 10:36
DX: I10 Essential (primary) hypertension (principal); E03.9 Hypothyroidism, unspecified; E78.00 Pure hypercholesterolemia, unspecified
CPT/HCPCS: 84443

== ENCOUNTER 2018-05-11 21:34 | Emergency (ER) | payer OTHER ==
[2018-05-11 22:51] LABS: BASO # 0.1 10^3/uL (0.0-0.2); BASO % 1.2 % (0.0-1.0); EOS # 0.1 10^3/uL (0.0-0.50); EOS % 2.2 % (0.0-3.0); HEMATOCRIT 31.2 % (36.0-47.0); HEMOGLOBIN 10.7 g/dl (12.0-15.5); IMMATURE GRANULOCYTE % 0.4 % (0-3.0); LYMPH # 2.2 10^3/uL (1.5-4.5); LYMPH % 43.4 % (24.0-44.0); MEAN CORPUSCULAR HEMOGLOBIN 32.8 pg (27.0-33.0); MEAN CORPUSCULAR HGB CONC 34.3 g/dl (32.0-36.5); MEAN CORPUSCULAR VOLUME 95.7 fl (80.0-96.0); MONO # 0.4 10^3/uL (0.0-0.8); MONO % 7.3 % (0.0-5.0); NEUTROPHILS # 2.3 10^3/uL (1.8-7.7); NEUTROPHILS % 45.5 % (36.0-66.0); PLATELET COUNT, AUTOMATED 225 10^3/uL (150-450); RED BLOOD COUNT 3.26 10^6/uL (4.00-5.40); RED CELL DISTRIBUTION WIDTH 12.6 % (11.5-14.5); WHITE BLOOD COUNT 5.1 10^3/uL (4.0-10.0)
[2018-05-11 23:10] LABS: ANION GAP 8 MEQ/L (8-16); BLOOD UREA NITROGEN 8 MG/DL (7-18); CALCIUM LEVEL 8.4 MG/DL (8.5-10.1); CARBON DIOXIDE LEVEL 28 MEQ/L (21-32); CHLORIDE LEVEL 109 MEQ/L (98-107); CREATININE FOR GFR 0.94 MG/DL (0.55-1.30); ETHYL ALCOHOL (ETHANOL) 0.027 % (0.000-0.010); GLOMERULAR FILTRATION RATE > 60.0 (>51); GLUCOSE, FASTING 103 MG/DL (70-100); POTASSIUM SERUM 3.3 MEQ/L (3.5-5.1); SODIUM LEVEL 145 MEQ/L (136-145)
[2018-05-12 00:39] LABS: BEDSIDE GLUCOSE 97 MG/DL (70-105)
== END 2018-05-12 02:44 | disposition home or self-care (01) ==
LOC: M ED 21:34
DX: F10.120 Alcohol abuse with intoxication, uncomplicated (principal); M25.562 Pain in left knee; I10 Essential (primary) hypertension; K21.9 Gastro-esophageal reflux disease without esophagitis; E03.9 Hypothyroidism, unspecified; F31.9 Bipolar disorder, unspecified; F17.200 Nicotine dependence, unspecified, uncomplicated
CPT/HCPCS: 70450

== ENCOUNTER → 2018-06-11 | Outpatient (REF) | LOC: M LAB 10:03 ==